=== PATIENT | male | born 1940 | race Caucasian/White ===

== ENCOUNTER 2016-03-06 08:00 | Outpatient (RCR) | payer BC | END 2016-03-09 | disposition still patient (30) | LOC: WSPT | DX: M25.552 Pain in left hip (principal) ==

== ENCOUNTER 2021-04-26 10:15 | Outpatient (RCR) | payer MEDICARE, BC | END 2021-04-29 | disposition home or self-care (01) | LOC: PT.GENESIS | DX: M17.0 Bilateral primary osteoarthritis of knee (principal); M54.42 Lumbago with sciatica, left side ==